=== PATIENT | female | born 1940 | race African-American/Black ===

== ENCOUNTER 2023-07-01 19:55 | Emergency (ER) | payer OTHER ==
[~2023-07-01] VITALS: Ht 165.1 cm; Wt 60.0 kg
[2023-07-01 19:57] VITALS: BP 196/74; PULSE 57; RESP 18; TEMP 98.4; O2SAT 97
== END 2023-07-01 21:00 | disposition left against medical advice (07) ==
LOC: ER 19:55
DX: R41.82 Altered mental status, unspecified (principal); Z53.21 Procedure and treatment not carried out due to patient leaving prior to being seen by health care provider
CPT/HCPCS: 99281; 99283